=== PATIENT | female | born 1945 | race Caucasian/White ===

== ENCOUNTER 2021-08-24 19:59 | Emergency (ER) | payer OTHER, SELFPAY ==
[2021-08-24 20:05] VITALS: PULSE 71; RESP 22; TEMP 36.9; O2SAT 99
[2021-08-24 20:08] VITALS: BP 159/72
--- NOTE | 2021-08-24 20:41 | ED.RECABL ---
HPI - Recheck/Abnormal Lab/Rx General Chief Complaint: Recheck/Abnormal Lab/Rx Stated Complaint: HAD SURGERY BLEED OF THE NOSE Time Seen by Provider: 08/24/21 20:10 Source: patient and family Mode of arrival: Ambulatory History of Present Illness HPI narrative: 75-year-old female nonsmoker with early dementia and a basal cell carcinoma on her nose presents with her and a chief complaint of bleeding from her right nostril. She had a Mohs procedure at a local operational intelligence analyst this afternoon. Sutures replaced in her right external naris and a bolster type packing was placed. She does not take any blood thinners but does use aspirin. She is not dizzy nor weak or lightheaded. She denies much in the way of pain. She has had a slow trickle of blood for an hour or so now. She does not feel it draining down the back of her throat. Her dressing is not saturated. She lives on [facility] with her but is staying locally in a hotel given the weather Related Data Allergies Allergy/AdvReac Type Severity Reaction Status Date / Time Penicillins Allergy Verified 08/24/21 20:09 Review of Systems Review of Systems Narrative: GENERAL: Denies chills, fatigue, malaise, fever, sweats. HEENT: See HPI RESPIRATORY: Denies dyspnea, cough, wheezing, hemoptysis, sputum. CARDIOVASCULAR: Denies chest pain, palpitations, orthopnea, edema, GASTROINTESTINAL: Denies nausea, vomiting, abdominal pain, diarrhea, constipation, melena. : Denies dysuria, frequency, incontinence, hematuria, urinary retention. MUSCULOSKELETAL: denies weakness, joint pain, or bony pain SKIN: Denies rash, skin lesions, or other NEUROLOGIC: Denies weakness, headache, numbness, change in speech, confusion, seizures, incoordination. PSYCHIATRIC: No concerning psychosocial issues. 12 point review of systems is negative except for those stated above Exam Narrative Exam Narrative: GEN: AOx3 and in mild distress EYES: Pupils are equal, round, and reactive to light and accommodation. Extraoccular muscles are intact bilaterally. There is no subconjunctival hemorrhage or exudate. ENT: Large packing in place, bleeding is slow but steady from internal R nare. CHEST: Lungs are clear to auscultation bilaterally and free of wheezes, rales, or rhonchi. Heart rate is regular rhythm, there are no murmurs, clicks, rubs, or gallops. There is no chest wall tenderness. ABD: Abdomen is soft and nontender. There is no guarding or rebound. Bowel sounds are normal in all 4 quadrants. There is no mass or organomegaly. EXT: Full painless ROM of all extremities with no loss of sensation or strength. SKIN: Warm, pink, and dry. No erythema or rash Initial Vital Signs Initial Vital Signs: Vital Signs Temperature 98.5 F 08/24/21 20:05 Pulse Rate 71 08/24/21 20:05 Respiratory Rate 22 08/24/21 20:05 Pulse Oximetry 99 08/24/21 20:05 Procedures Epistaxis Control Nostril: right Direct Inspection: unable to visualize Course Orders Ordered: Discontinued Medications Tranexamic Acid (Tranexamic Acid 1,000 Mg Vial) 1,000 mg MM NOW ONE Stop: 08/24/21 21:11 Last Admin: 08/24/21 21:27 Dose: 1,000 mg Documented by: HANNAH Consultations Consultation #1: After initial evaluation I placed a phone call to on-call Dermatology at [facility]. After discussing the case with on-call operational intelligence analyst he suggests that there was a bolster placed and not to attempt removal of sutures or packing if the bleeding is minimal. We discussed placement of a TXA soaked cotton ball within the [place] and applying some pressure with appropriate return precautions and close follow-up, he was in quick agreement to suggest patient would be able to be seen tomorrow morning in the same clinic. Vital Signs Vital signs: Vital Signs - 8 hr 08/24/21 20:05 08/24/21 20:08 Temperature 98.5 F Pulse Rate 71 Respiratory Rate 22 Blood Pressure 159/72 H Pulse Oximetry 99 MDM - Recheck/Abnormal Lab/Rx MDM Narrative Medical decision making narrative: Bleeding controlled with TXA soaked cotton ball as noted above, observed for 30 minutes and no saturation of gauze. Patient and given return precautions and strongly encouraged to stay in town and follow-up with dermatology clinic in the morning. Questions answered to their apparent satisfaction Discharge Plan Departure Patient Disposition: Home Clinical Impression: Post-op bleeding Qualifiers: Surgical complication system/body Area: skin Procedure type: dermatologic Qualified Code(s): L76.21 - Postprocedural hemorrhage of skin and subcutaneous tissue following a dermatologic procedure Instructions: DI for Nosebleed Activity Restrictions/Additional Instructions: *You have been diagnosed with [nosebleed after procedure] *What to do: *Please continue to take your regular medications as directed. [ ] New medication prescriptions sent to your pharmacy: [ ] [ ] New medication written as a paper prescription [x ] No new medications given *Please follow up with your operational intelligence analyst in the morning *Return to Emergency Department if you should have any new, worsening or concerning symptoms
[2021-08-24] MEDS: TRANEXAMIC ACID 1,000 MG VIAL 1000 MG MM (21:27)
== END 2021-08-24 22:01 | disposition home or self-care (01) ==
PROVIDERS: Emergency Provider Emergency Medicine
DX: L76.21 Postprocedural hemorrhage of skin and subcutaneous tissue following a dermatologic procedure (principal)
CPT/HCPCS: 99282